=== PATIENT | female | born 1995 | race Caucasian/White ===

== ENCOUNTER 2020-01-30 12:45 | Emergency (ER) | payer OTHER ==
[~2020-01-30] VITALS: Ht 175.3 cm; Wt 55.3 kg
[2020-01-30] MEDS ORDERED: SERT-138 PO (13:22)
[2020-01-30] MEDS ORDERED: GABA-843 PO (13:22)
[2020-01-30 13:54] LABS: HEMATOCRIT 39.8 % (36.0-47.0); HEMOGLOBIN 13.5 g/dl (12.0-15.5); MEAN CORPUSCULAR HEMOGLOBIN 30.3 pg (27.0-33.0); MEAN CORPUSCULAR HGB CONC 33.9 g/dl (32.0-36.5); MEAN CORPUSCULAR VOLUME 89.4 fl (80.0-96.0); PLATELET COUNT, AUTOMATED 174 10^3/uL (150-450); RED BLOOD COUNT 4.45 10^6/uL (4.00-5.40); WHITE BLOOD COUNT 5.7 10^3/uL (4.0-10.0)
[2020-01-30] MEDS ORDERED: MACR100C43 PO (15:39)
[2020-01-30 16:00] VITALS: BP 108/60
== END 2020-01-30 16:02 | disposition home or self-care (01) ==
LOC: M ED 12:45
DX: N39.0 Urinary tract infection, site not specified (principal); M79.10 Myalgia, unspecified site; J34.89 Other specified disorders of nose and nasal sinuses; F41.9 Anxiety disorder, unspecified; F33.9 Major depressive disorder, recurrent, unspecified; Z79.899 Other long term (current) drug therapy; Z88.0 Allergy status to penicillin; Z87.440 Personal history of urinary (tract) infections; Z98.890 Other specified postprocedural states

== ENCOUNTER 2020-09-11 12:00 | Emergency (ER) | payer OTHER ==
[~2020-09-11] VITALS: Ht 175.3 cm; Wt 63.7 kg
[~2020-09-11 12:00] MED LIST: GABA-282 PO; MACR100C43 PO; SERT-138 PO
--- OUTSIDE RECORDS SUMMARY | 2020-09-11 12:07 | CCD ---
Author Author [facility] Organization [facility] Address Unknown Phone Unavailable Care Team Providers Care Band Leader Name Role Phone Isrrael ROBERT MD Unavailable Unavailable VENERUS, Isrrael JIMÉNEZ MD Unavailable Unavailable VENERUS, Isrrael JIMÉNEZ MD Unavailable Unavailable VENERUS, Isrrael JIMÉNEZ MD Unavailable Unavailable VENERUS, Isrrael JIMÉNEZ MD Unavailable Unavailable VENERUS, Isrrael JIMÉNEZ MD Unavailable Unavailable VENERUS, Isrrael JIMÉNEZ MD Unavailable Unavailable VENERUS, Isrrael JIMÉNEZ MD Unavailable Unavailable VENERUS, Isrrael JIMÉNEZ MD Unavailable Unavailable LETTIERE, Qian VARGAS PA Unavailable Unavailable LETTIERE, A ALICIA PA Unavailable Unavailable LETTIERE, A ALICIA PA Unavailable Unavailable LETTIERE, A ALICIA PA Unavailable Unavailable LETTIERE, Qian VARGAS PA Unavailable Unavailable LETTIERE, A ALICIA PA Unavailable Unavailable LETTIERE, A ALICIA PA Unavailable Unavailable LETTIERE, A ALICIA PA Unavailable Unavailable LETTIERE, A ALICIA PA Unavailable Unavailable LETTIERE, A ALICIA PA Unavailable Unavailable LETTIERE, A ALICIA PA Unavailable Unavailable LETTIERE, A ALICIA PA Unavailable Unavailable LETTIERE, A ALICIA PA Unavailable Unavailable LETTIERE, A ALICIA PA Unavailable Unavailable LETTIERE, A ALICIA PA Unavailable Unavailable LETTIERE, A ALICIA PA Unavailable Unavailable LETTIERE, A ALICIA PA Unavailable Unavailable LETTIERE, A ALICIA PA Unavailable Unavailable LETTIERE, A ALICIA PA Unavailable Unavailable LETTIERE, A ALICIA PA Unavailable Unavailable LETTIERE, A ALICIA PA Unavailable Unavailable LETTIERE, A ALICIA PA Unavailable Unavailable LETTIERE, A ALICIA PA Unavailable Unavailable LETTIERE, A ALICIA PA Unavailable Unavailable LETTIERE, A ALICIA PA Unavailable Unavailable LETTIERE, A ALICIA PA Unavailable Unavailable LETTIERE, A ALICIA PA Unavailable Unavailable LETTIERE, A ALICIA PA Unavailable Unavailable LETTIERE, A ALICIA PA Unavailable Unavailable Re-disclosure Warning The records that you are about to access may contain information from federally-assisted alcohol or drug abuse programs. If such information is present, then the following federally mandated warning applies: This information has been disclosed to you from records protected by federal confidentiality rules (42 CFR part 2). The federal rules prohibit you from making any further disclosure of this information unless further disclosure is expressly permitted by the written consent of the person to whom it pertains or as otherwise permitted by 42 CFR part 2. A general authorization for the release of medical or other information is NOT sufficient for this purpose. The Federal rules restrict any use of the information to criminally investigate or prosecute any alcohol or drug abuse patient.The records that you are about to access may contain highly sensitive health information, the redisclosure of which is protected by Article 27-F of the [facility] Public Health law. If you continue you may have access to information: Regarding HIV / AIDS; Provided by facilities licensed or operated by the [facility] Office of Mental Health; or Provided by the [facility] Office for People With Developmental Disabilities. If such information is present, then the following [facility] mandated warning applies: This information has been disclosed to you from confidential records which are protected by state law. State law prohibits you from making any further disclosure of this information without the specific written consent of the person to whom it pertains, or as otherwise permitted by law. Any unauthorized further disclosure in violation of state law may result in a fine or fdc sentence or both. A general authorization for the release of medical or other information is NOT sufficient authorization for further disc losure. Allergies and Adverse Reactions Type Description Substance Reaction Status Data Source(s ) Amoxicillin Amoxicillin Amoxicillin 80 MG/ML Oral Suspension hives Active eCW1 ([facility]) Encounters Encounter Providers Location Date Indications Data Source(s ) Emergency Attender: RAMONE ROBERT MD 05/10 03:23:00 PM EDT - 05/10/2020 04:53:00 PM EDT [facility] Patient discharged. [facility] [address] [address] 08/10/2019 12:00:00 AM EST eCW1 (Formerly [facility]) [facility] [address] [address] 08/07/2019 12:00:00 AM EST eCW1 (Formerly [facility]) Outpatient Attender: ALICIA hills 07/16/2019 02:50:00 PM EST MEDENT ([facility]) Medications Medication Brand Name Start Date Product Form Dose Route Admi nistrative Instructions Pharmacy Instructions Status Indications Reaction Description Data Source(s) Sudafed 30 MG Sudafed 30 MG 08/10/2019 12:00:00 AM EST active 1 tablet as needed eCW1 ([facility]) Flonase 50 MCG/ACT Flonase 50 MCG/ACT 08/10/2019 12:00:00 AM EST active 1 spray in each nostril eCW1 ([facility]) Neti Pot Sinus Wash 2300-700 MG Neti Pot Sinus Wash 2300-700 MG 08/10/2019 12:00:00 AM EST active as direc guzman eCW1 ([facility]) doxycycline hyclate 100 MG Oral Capsule Doxycycline Hy clate 100 MG Doxycycline Hyclate 100 MG 08/10/2019 12:00:00 AM EST active 1 capsule eCW1 ([facility]) 12 HR dextromethorphan polistirex 6 MG/M L Extended Release Suspension [Delsym] Delsym 30 MG/5ML Delsym 30 MG/5ML 08/10/2019 12:00:00 AM EST active 10 ml as needed eCW1 ([facility]) 12 HR Pseudoephedrine Hydrochloride 120 MG Extended Release Oral Tablet [Sudafed] Sudafed 12 Hour 120 MG Sudafed 12 Hour 120 MG 08/07/2019 12:00:00 A M EST active 1 tablet as neede d eCW1 ([facility]) 12 HR Pseudoephedrine Hydrochloride 120 MG Extended Release Oral Tablet [Sudafed] Sudafed 12 Hour 120 MG Sudafed 12 Hour 120 MG 08/07/2019 12:00:00 A M EST active 1 tablet as neede d eCW1 ([facility]) Doxycycline Monohydrate 100 MG Oral Tablet Doxycycline Monoh ydrate 07/16/2019 12:00:00 AM EST ORAL active M EDENT ([facility], [facility]) Insurance Providers Payer name Policy type / Coverage type Policy ID Covered republican ID Covered republican's relationship to yoo Policy Yoo Plan Information [facility] [id number] [facility] HUMAN - O/P [id number] 01 [id number] [facility] ACTIVE DUTY [id number] SP [id number] Problems, Conditions, and Diagnoses Code Display Name Description Problem Type Effective Dates Data Source(s) [id number] [address] in unspeci fied non-institutional (private) residence as the place of occurrence of the external cause Unspecified place in unspecified non-institutional (private) residence as the place of occurrence of the external cause Diagnosis 05/10/2020 03:23:00 PM EDT [facility] [id number] Overexertion from strenuous movement or load, initial encounter Overexertion from strenuous movement or load, initial encounter Diagnosis 05/10/2020 03:23:00 PM EDT [facility] [id number] Strain of muscle(s) and tend on(s) of the rotator cuff of left shoulder, initial encounter Strain of muscle(s) and tendon(s) of the rotator cuff of left shoulder, initial encounter Diagnosis 05/10/2020 03:23:00 PM EDT [facility] [id number] Unspecified injury of left shoulder and upper arm, initial encounter Unspecified injury of left shoulder and upper arm, initial encounter Diagnosis 05/10/2020 03:23:00 PM EDT [facility] Surgeries/Procedures Procedure Description Date Indications Data Source(s) Influenza A+B 08/07/2019 12:00:00 AM EST eCW1 ([facility]) Results ID Date Data Source [id number] 05/11/2020 05:07:00 PM EDT [facility] [address] [place] [address] PHONE: [phone] FAX: [phone] Name .................. : CHRIS Rosario Acct Number.................. : [id number] ROOM. ................. : TR-07 MR Number ................... : [id number] Stay type ............. : E/R Discharge Date......... ... : 05/10/20 Admit Date ......... : 05/10/20 Admit Phys .................... : YESICA RODGERS Date of ....... : 1995 Family Phys ................... : UNKNOWN Phone .................. : [phone] Age ................................ : 24 Film# .................. .:[id number] Sex ................................. : F Unsigned transcriptions are preliminary reports and do not represent a medical or legal document SHOULDER COMP-2 OR MORE [facility] L [id number] COMPLETE:05/10/20 16:13 INES 28870 Reason(s): Pain LEFT SHOULDER X- RAY: INDICATION: Pain. FINDINGS: There is normal alignment and position of the bones of the left shoulder. No evidence for acute bony injury is identified. The soft tissues also appear normal. IMPRESSION: Negative left shoulder. Electronically Reviewed and Signed By Kike Best MD , 05/11/20 17:07, TATE Transcribe Initials: Griselda FELDMAN scribe Date: 05/10/20 18:34, Dictation Date: Copy for: EMERGENCY DEPT via modem Copy for: 710 MED REC DISCHARGED Page 1 of 1 Name Value Range Interpretation Code Description Data Celena rce(s) Supporting Document(s) ID Date Data Source [id number] 05/10/2020 03:23:00 PM EDT [facility] 1 OrderSheet [facility] Emergency Department [address] [place] [address] Phone #: ext- [phone] 05/10/2020 15:16 Patient: ARMAND PEREZ Sex: F : 1995 Age: 24yWEIGHT:58.9 kg (S) HEIGHT:69 inches (S) BMI:19.2ALLERGIES: Amoxicillin, PenicillinsCHIEF COMPLAINT: Lt, shoulderDIAGNOSIS: Strain of muscle of upper limbLAB ORDERSOrder Description Priority Entered Acknowledged InitialedDIAGNOSTIC STUDY ORDERSOrder Description Priority Entered Acknowledged InitialedShoulder Complete STAT 15:34 05/10/2020 15:47 Michelle Adams (Oxygen?(No)) Ramone Temple R.N. Physician; Reason for Study: Pain, Trauma/InjuryMEDICATION/IV/DRIP/FLUID ORDERSOrder Descr iption Priority Entered Acknowledged InitialedToradol IM 60 mg 16:05 05/10/2020 16:18 Nagi(NOW) Ramone Lantigua RN Physician;GENERAL ORDERSOrder Description Priority Entered Acknowledged InitialedSling - arm (L arm) 16:40 05/10/2020 16:48 Ramone Adams R.N. Physician;[Electronically signed by Windy Adams R.N. (16:53 05/10/2020)][Electronically signed by Ramone Robert Physician (17:35 05/10/2020)][Electronically locked by Windy Adams R.N. (16:53 05/10/2020)] Name Value Range Interpretation Code Description Data Celena rce(s) Supporting Document(s) ID Date Data Source [id number] 05/10/2020 03:23:00 PM EDT [facility] 1 Medication Reconciliation Report [facility] Emergency Department [address] [place] [address] Phone #: ext- [phone] 05/10/2020 15:16 Patient: ARMAND PEREZ Sex: F : 1995 Age: 24yWeight: 58.9 kgHeight/Length: 69 in.BMI: 19.2ALLERGIES: Amoxicillin, PenicillinsThe patient's Home Medications are listed below:THE FOLLOWING MEDICATIONS NEED TO BE RECONCILED: Amitriptyline HCl Oral 50 mg, daily Gabapentin Oral 300 mg, dailyThe source(s) of the original Home Medication information:patientThe following Medications were given to the patient in the Emergency Department:Toradol [IM] IM 60 mg, administered: 05/10/2020 4:15:00 PMThe following Medications were prescribed to the patient:ibuprofen 800 mg tablet Take 1 tablet every eight hours as needed for 10 days -- for pain. Dispense 30tablet. Refills: 0. Substitution permitted.Pharmacy - [facility] [id number] ; [place] [address]. .cyclobenzaprine 5 mg tablet Take 1 tablet every eight hours as needed for 5 days -- for muscle spasm /strain. Dispense 15 tablet. Refills: 0. Substitution permitted.Pharmacy - [facility] [id number] ; [place] [address]. . -- Ramone Robert, Physician Name Value Range Interpretation Code Description Data Celena rce(s) Supporting Document(s) ID Date Data Source [id number] 05/10/2020 03:23:00 PM EDT [facility] 1 Medication Administration Record [facility] Emergency Department [address] [place] [address] Phone #: ext- [phone] 05/10/2020 15:16 Patient: ARMAND PEREZ Sex: F : 1995 Age: 24yWeight: 58.9 kgHeight/Length: 69 inBMI: 19.2ALLERGIES: Amoxicillin, Penicillins Date/Time Medication Administered Medication OrderedGiven TORADOL [IM] (KETOROLAC Toradol IM 60 mg (NOW)16:15 05/10/2020 TROMETHAMINE)Nagi Lantigua RN Dose: 60 mg IM Name Value Range Interpretation Code Description Data Celena rce(s) Supporting Document(s) ID Date Data Source [id number] 05/10/2020 03:23:00 PM EDT [facility] 1 General Instructions [facility] Emergency Department [address] [place] [address] Phone #: ext- [phone] 05/10/2020 15:16 Patient: ARMAND PEREZ Sex: F : 1995 Age: 24yMuscle strain of the left rotator cuff at the shoulder.INSTRUCTIONSWear sling as needed.(Consider MRI of L shoulder if symptoms persist.).Prescription Medications:ibuprofen 800 mg tablet Take 1 tablet every eight hours as needed for 10 days -- for pain. Dispense 30tablet. Refills: 0. Substitution permitted.Pharmacy - [facility] [id number] ; [place] [address]. .cyclobenzaprine 5 mg tablet Take 1 tablet every eight hours as needed for 5 days -- for muscle spasm /strain. Dispense 15 tablet. Refills: 0. Substitution permitted.Pharmacy - [facility] [id number] ; [place] [address]. .Follow-up:Follow up with an orthopedic surgeon in seven days if not better. Call for an appointment. Reason forreferral: evaluation, treatment and L shoulder strain. Follow up with your doctor if not better. Call for anappointment. Reason for referral: evaluation, treatment and L shoulder / rotator cuff strain.Understanding of the discharge instructions verbalized by patient. ADDITIONAL INFORMATIONMuscle Strain in the ExtremitiesA muscle strain is a stretching and tearing of muscle fibers. This causes pain, especially when youmove that muscle. There may also be some swelling and bruising.Home care Keep the hurt area raised above heart level to reduce pain and swelling. This is especially important during the first 48 hours. 2 General Instructions [facility] Emergency Department [address] [place] [address] Phone #: ext- [phone] 05/10/2020 15:16 Patient: ARMAND PEREZ Sex: F : 1995 Age: 24y Apply an ice pack over the injured area for 15 to 20 minutes every 3 to 6 hours. You should do this for the first 24 to 48 hours. You can make an ice pack by filling a plastic bag that seals at the top with ice cubes and then wrapping it with a thin towel. Be careful not to injure your skin with the ice treatments. Ice should never be applied directly to skin. Continue the use of ice packs for relief of pain and swelling as needed. After 48 hours, apply heat (warm shower or warm bath) for 15 to 20 minutes several times a day, or alternate ice and heat. You may use qptx-hqg-gtagrhs pain medicine to control pain, unless another medicine was prescribed. If you have chronic liver or kidney disease or ever had a stomach ulcer or gastrointestinal bleeding, talk with your healthcare provider before using these medicines. For leg strains: If crutches have been recommended, don't put full weight on the hurt leg until you can do so without pain. You can return to sports when you are able to hop and run on the injured leg without pain.Follow-up careFollow up with your healthcare provider, or as advised.When to seek medical adviceCall your healthcare provider right away if any of these occur: The toes of the injured leg become swollen, cold, blue, numb, or tingly Pain or swelling increases [id number] [employer]. [address] [place], [place] [address]. All rights reserved. This information is not intended as asubstitute for professional medical care. Always follow your healthcare professional's instructions.SlingA sling is designed to support your arm in a position of rest. It is used for injuries of the hand, forearm, 3 General Instructions [facility] Emergency Department [address] [place] [address] Phone #: ext- [phone] 05/10/2020 15:16 Patient: ARMAND PEREZ Sex: F : 1995 Age: 24yupper arm, and shoulder.A shoulder that is immobilized too long can become stiff and lose range of motion. Your elbow canalso get stiff. Follow up with your healthcare provider as advised and don't use the sling longer thandirected.Home use: Leave the sling in place as long as directed by your healthcare provider. Unless told otherwise, you may remove it when bathing, dressing, and when you go to sleep. If approved by your healthcare provider, you can do gentle "pendulum exercises." To do these: o Remove your sling. o Stand or sit with your arm vertical and close to your side. o Relax your shoulder muscles and gently swing the arm forward and back, side to side, and in small circles. o Do this for about 5 minutes once or twice a day.There should be only minimal pain with this exercise. If you have more than minimal discomfort, stopthe exercise and call your healthcare provider. The sling is adjustable. If it becomes loose, adjust it so that your forearm is horizontal (level with the ground). Your hand should be level with the elbow. 6474-8999 [employer]. [address] [place] [address]. All rights reserved. This information is not intended as asubstitute for professional medical care. Always follow your healthcare professional's instructions. You have been given the following additional information: Muscle Strain, Extremity Sling(Electronically signed by Ramone Robert, Physician 05/10/2020 17:35) Name Value Range Interpretation Code Description Data Celena rce(s) Supporting Document(s) ID Date Data Source [id number] 05/10/2020 03:23:00 PM EDT [facility] 1 Clinical Report - Nurses [facility] Emergency Department [address] [place] [address] Phone #: ext- [phone] 05/10/2020 15:16 Patient: ARMAND PEREZ Sex: F : 1995 Age: 24yTRIAGEArrived by private vehicle. Historian: patient. Accompanied by spouse.Triage time: late entry - 15:17 05/10/2020. Acuity: LEVEL 4.Chief Complaint: (Left shoulder pain).Alert. No acute distress.Location of injuries: left shoulder. Occurred 15:19 05/07/2020. ( Pt states on night she wastrying to push herself off the couch and suddenly felt as if something shifted in her left shoulder. After thisshe would get pain from the shoulder to the elbow when attempting to pick anything up. Pt feels she mayhave moved weird in her sleep last night and now it feels more irritated, and hurts even withoutmovement/use.).Treatment CAGE FIGHTER:None.SEPSIS SCREEN: SIRS Screen negative. Sepsis Screen negative. No suspected or confirmed signs ofinfection present. (15:23 05/10/2020). --15:23 05/10/20 Hattie Tariq R.N.15:18 05/10/20. BP: 121/84. MAP: 96. HR: 88. RR: 16. O2 saturation: 100% on room air. Temp: 98.5 F(oral). Pain level now: 12/24. --15:23 05/10/20 Hattie Tariq R.N.Weight: 58.9 kg stated. Height/Length: 69 inches Per Patient. BMI: 19.2. --15:17 05/10/20 Hattie Tariq R.N.MedicationsAmitriptyline HCl Oral 50 mg, daily. --15:20 05/10/20 Hattie Tariq R.N. Gabapentin Oral 300 mg, daily. --15:20 05/10/20 Hattie Tariq R.N.AllergiesPenicillins. --15:21 05/10/20 Hattie Tariq R.N.Amoxicillin. --15:21 05/10/20 Hattie Tariq R.N.PROBLEMS:Migraine Headache.Depression.Anxiety Reaction. --15:21 05/10/20 Hattie Tariq R.N.Medication/allergy information source: the patient. --15:23 05/10/20 Hattie Tariq R.N.ADDITIONAL SURGERIES: 2 Clinical Report - Nurses [facility] Emergency Department [address] [place] [address] Phone #: ext- [phone] 05/10/2020 15:16 Patient: ARMAND PEREZ Sex: F : 1995 Age: 24y HODAN surgery . --15:21 05/10/20 Hattie Tariq R.N. Dental Surgery. --15:21 05/10/20 Hattie Tariq R.N. History PAST MEDICAL HX: Tetanus status: up-to-date. Immunizations: up-to-date. Last normal menstrual period- 04/16/20. SOCIAL HX: Never smoker. Occasional alcohol use. No drug use. The patient was offered HIV testing but declined. Patient education was provided. The patient was offered hepatitis C testing but declined. Patient education was provided. ( COVID screen negative). The patient has not traveled outside the [place] Infectious disease exposure: No infectious disease exposure. Patient is not a known carrier of tuberculosis, hepatitis, HIV, MRSA or VRE. Patient is not a known carrier of CRE. SELF HARM ASSESSMENT: Self harm assessment was performed. The patient answered "no" to the question(s) "Do you have thoughts of harming or killing yourself?" and "Do you have a plan for harming or killing yourself?". ABUSE ASSESSMENT: Abuse assessment. The patient had positive responses to the question(s) "Do you feel safe in your home?". Abuse denied. No suspicion of abuse. No report of abuse. NUTRITIONAL RISK ASSESSMENT: The nutritional risk assessment revealed no deficiencies. FUNCTIONAL ASSESSMENT: Functional assessment: no impairments noted. LEARNING NEEDS ASSESSMENT: The learning needs assessment revealed no barriers. FALL RISK ASSESSMENT: Fall risk assessment completed. No risk factors identified. SKIN INTEGRITY ASSESSMENT: Skin integrity risk assessment completed. No skin integrity risk identified. --15:05/10/20 Hattie Tariq R.N. Interventions Identification band on patient. --15:05/10/20 Hattie Tariq R.N.PHYSICAL ASSESSMENTGENERAL / NEURO / PSYCH: Alert. Oriented X 4. Appears in pain.HEENT: Pupils equal, round and reactive to light. Head non-tender.RESPIRATORY: Respirations not labored. Chest nontender. Breath sounds within normal limits.CVS: Normal heart rate and rhythm. Pulses within normal limits. Capillary refill less than 2 seconds.GI / : Abdomen soft and nontender.EXTREMITIES: Left shoulder: tenderness located in the posterior aspect of the shoulder (PAin thatradiates from shoulder to elbow).SKIN: Skin intact. Skin is warm and dry. --15:27 05/10/20 Windy Adams R.N. 3 Clinical Report - Nurses [facility] Emergency Department [address] [place] [address] Phone #: ext- [phone] 05/10/2020 15:16 Patient: ARMAND PEREZ Sex: F : 1995 Age: 24yNURSING PROGRESS NOTES16:15 05/10/2020 Toradol (Ketorolac Tromethamine) IM 60 mg given. Given in the left gluteus corry.Allergies verified and confirmed 5 rights. Information reviewed with patient including reason for taking thismedication. Verbalizes understanding. --16:18 05/10/20 Nagi Lantigua RN.DISPOSITION / DISCHARGE Condition at departure: improved. No learning barriers present. Discharge instructions provided and reviewed with the patient. Reviewed medication(s). Prescription(s) sent electronically to pharmacy. Reviewed referral to an orthopedic surgeon. Written instructions provided in Greek. ( Spling applied to L shoulder). The patient was discharged by the physician. She was discharged home and accompanied by spouse. She left ambulatory and via private vehicle. Patient driving. --16:53 05/10/20 Windy Adams R.N. 16:52 05/10/20. BP: 116/78. MAP: 90. HR: 85. RR: 20. O2 saturation: 100%. Temp: 98.3 F. Pain level now: 08/26. --16:53 05/10/20 Windy Adams R.N.Locked/Released at 05/10/2020 16:53 by Windy Adams R.N. Name Value Range Interpretation Code Description Data Celena rce(s) Supporting Document(s) ID Date Data Source [id number] 05/10/2020 03:23:00 PM EDT [facility] 1 Clinical Report - Physicians/Mid Levels [facility] Emergency Department [address] [place] [address] Phone #: ext- [phone] 05/10/2020 15:16 Patient: ARMAND PEREZ Sex: F : 1995 Age: 24y Time Seen: 15:17 05/10/2020. Arrived- By private vehicle. Historian- patient. Disposition decision: 16:33 05/10/2020.HISTORY OF PRESENT ILLNESS Chief Complaint: Injury to left shoulder. The injury happened several days ago. Occurred at home. ( Hurt L shoulder pushing herself up from seated position). Patient is experiencing moderate pain. No injury to the head or neck or other injury. ( Hx of rotator cuff injury to R shoulder in past. Pt. is on Gabapentin chronically for pain.).REVIEW OF SYSTEMSNo swelling, tingling, numbness, weakness or suspected foreign body. No skin laceration.PAST HISTORYPast history not negative. See nurses notes. MigrainesDepressionAnxiety. The patient's dominant hand is the right. Tetanus immunization status is up-to-date. Surgeries: Dental surgery. (HODAN surgery (Surgery for pectus excavatum)).SOCIAL HISTORYNever smoker. Occasional alcohol use. No drug use. No recent travel.ADDITIONAL NOTESThe nursing notes have been reviewed with agreement regarding the chief complaint, HPI, ROS, PMH andpatient medications and allergies.PHYSICAL EXAMVital Signs: 05/10/2020 15:18 BP: 121/84. MAP: 96. HR: 88. RR: 16. O2 saturation: 100% on room air.Temp: 98.5 F. Pain level now: 6/10. Have been reviewed and appear to be correct. Blood pressurenormal. Heart rate normal. Respiratory rate normal. Temperature normal. Oxygen saturation normal.Appearance: Alert. Oriented X3. Anxious. Appears to be in pain. In distress. Patient in mild distress.No backboard or C-collar.Head: Head atraumatic.Back: Abnormal inspection. Back tenderness present. Abnormal ROM.Skin: Skin intact. Skin warm and dry. Normal skin color. Normal skin turgor.Extremities: Normal external inspection. Extremity tenderness. Mild soft- tissue tenderness present overthe left medial and posterior shoulder. Left shoulder. Shoulder otherwise negative. No decreased rangeof motion at the shoulders. (Pt. has good ROM of L shoulder.). Extremities otherwise negative.Neuro, Vascular and Tendons: Sensation intact. Motor intact. Vascular status intact. Tendon functionintact. 2 Clinical Report - Physicians/Mid Levels [facility] Emergency Department [address] [place] [address] Phone #: ext- [phone] 05/10/2020 15:16 Patient: ARMAND PEREZ Sex: F : 1995 Age: 24y Neuro: Oriented X 3. No motor deficit. No sensory deficit.LABS, X-RAYS, AND EKGX-Rays: Left shoulder negative.PROGRESS AND PROCEDURESCourse of Care: 16:08 May 10 2020. Patient is stable. 16:08 May 10 2020. X-ray of L shoulder appears unremarkable, but, as I told her, MRI is the definitive test to see soft tissues (muscles, tendons and cartilage) if symptoms persist. Await radiology read on shoulder. 16:32 May 10 2020. No evidence of any bony injury to L shoulder as per radiology. Will discharge home with dx of L shoulder strain. Disposition: Discharged home in good and improved condition (16:33 May 10 2020). Condition: good.CLINICAL IMPRESSION Muscle strain of the left rotator cuff at the shoulder.INSTRUCTIONS Wear sling as needed. (Consider MRI of L shoulder if symptoms persist.). Prescription Medications: ibuprofen 800 mg tablet Take 1 tablet every eight hours as needed for 10 days -- for pain. Dispense 30 tablet. Refills: 0. Substitution permitted. Pharmacy - [phone] [phone] ; [place] [address]. Phone: . cyclobenzaprine 5 mg tablet Take 1 tablet every eight hours as needed for 5 days -- for muscle spasm / strain. Dispense 15 tablet. Refills: 0. Substitution permitted. Pharmacy - [phone] ; [place] [id number]. . Follow-up: Follow up with an orthopedic surgeon in seven days if not better. Call for an appointment. Reason for referral: evaluation, treatment and L shoulder strain. Follow up with your doctor if not better. Call for an appointment. Reason for referral: evaluation, treatment and L shoulder / rotator cuff strain. 3 Clinical Report - Physicians/Mid [facility] Emergency Department [address] [place] [address] Phone #: ext- [phone] 05/10/2020 15:16 Patient: ARMAND PEREZ Sex: F : 1995 Age: 24y Understanding of the discharge instructions verbalized by patient.(Electronically signed by Ramone Robert Physician 05/10/2020 17:35) Name Value Range Interpretation Code Description Data Celena rce(s) Supporting Document(s) Procedure Vital Signs ID Date Data Source UNK Name Value Range Interpretation Code Description Data Source(s) Diastolic blood pressure 75 mm[Hg] 75 mm[Hg] eCW1 ([facility]) Systolic blood pressure 108 mm[Hg] 108 mm[Hg] e CW1 ([facility]) Body temperature 98.2 [degF] 98.2 [degF] eCW1 ( [facility]) Respiratory rate 16 /min 16 /min eCW1 ([facility]) Heart rate 94 /min 94 /min eCW1 ([facility]) Body mass index (BMI) [Ratio] 17.42 kg/m2 17.42 kg/m2 eCW1 ([facility]) Body height 69 [in_us] 69 [in_us] eCW1 ([facility]) Body weight Measured 118 [lb_av] 118 [lb_av] eC W1 ([facility]) Diastolic blood pressure 84 mm[Hg] 84 mm[Hg] eCW1 ([facility]) Systolic blood pressure 119 mm[Hg] 119 mm[Hg] e CW1 ([facility]) Body temperature [degF] eCW1 ([facility]) Respiratory rate 16 /min 16 /min eCW1 ([facility]) Heart rate 87 /min 87 /min eCW1 ([facility]) Body mass index (BMI) [Ratio] 17.42 kg/m2 17.42 kg/m2 eCW1 ([facility]) Body height 69 [in_us] 69 [in_us] eCW1 ([facility]) Body weight Measured 118 [lb_av] 118 [lb_av] eC W1 ([facility]) Body mass index (BMI) [Ratio] 17.4 kg/m2 17.4 k g/m2 MEDENT ([facility], [facility]) Body height 69 [in_i] 69 [in_i] MEDENT ([facility], [facility]) 5'9" Body weight 118.00 [lb_av] 118.00 [lb_av] MEDEN T ([facility], [facility]) Body temperature 98.5 [degF] 98.5 [degF] MEDENT ([facility], [facility]) Oxygen saturation in Arterial blood by Pulse oximetry 97 % 97 % MEDENT ([facility], [facility]) Respiratory rate 17 /min 17 /min MEDENT ( [facility], [facility]) Heart rate 73 /min 73 /min MEDENT ([facility], [facility]) Diastolic blood pressure 68 mm[Hg] 68 mm[Hg] MEDENT ([facility], [facility]) Systolic blood pressure 102 mm[Hg] 102 mm[Hg] M EDENT ([facility], [facility]) Patient Treatment Plan of Care Planned Activity Planned Date Details Description Data Source (s) Neti Pot Sinus Wash 2300-700 MG 08/10/2019 12:00:00 AM EST eCW1 ([facility]) Sudafed 30 MG 08/10/2019 12:00:00 AM EST eCW1 ([facility]) doxycycline hyclate 100 MG Oral Capsule 08/10/2019 12:00:00 AM EST eCW1 ([facility]) Flonase 50 MCG/ACT 08/10/2019 12:00:00 AM EST eCW1 ([facility]) 12 HR dextromethorphan polistirex 6 MG/ML Extended Rel ease Suspension [Delsym] 08/10/2019 12:00:00 AM EST eCW1 ([facility]) 12 HR Pseudoephedrine Hydrochloride 120 MG Extended Release Oral Tablet [Sudafed] 08/07/2019 12:00:00 AM EST eCW1 ([facility])
[2020-09-11] MEDS ORDERED: AMIT50TA PO (12:08)
[2020-09-11] MEDS ORDERED: NS 1,000 ML IV ONE (12:35)
[2020-09-11 13:38] LABS: BASO % 0.5 % (0.0-1.0); EOS # 0.1 10^3/uL (0.0-0.5); HEMATOCRIT 37.9 % (36.0-47.0); HEMOGLOBIN 12.5 g/dl (12.0-15.5); LYMPH # 1.3 10^3/uL (1.5-5.0); LYMPH % 20.7 % (24.0-44.0); MEAN CORPUSCULAR HEMOGLOBIN 29.6 pg (27.0-33.0); MEAN CORPUSCULAR VOLUME 89.8 fl (80.0-96.0); MONO # 0.3 10^3/uL (0.0-0.8); NEUTROPHILS # 4.4 10^3/uL (1.5-8.5); NEUTROPHILS % 72.6 % (36.0-66.0); PLATELET COUNT, AUTOMATED 182 10^3/uL (150-450); RED BLOOD COUNT 4.22 10^6/uL (4.00-5.40)
[2020-09-11 13:39] VITALS: O2SAT 100
[2020-09-11] MEDS ORDERED: DEXTROSE 50% 50 ML SYRINGE IV SCH (13:55)
[2020-09-11 14:16] LABS: ALBUMIN 4.5 GM/DL (3.2-5.2); ALT/SGPT 24 U/L (12-78); AMYLASE 50 U/L (25-115); BILIRUBIN,DIRECT < 0.1 MG/DL (0.0-0.2); BILIRUBIN,TOTAL 0.3 MG/DL (0.2-1.0); CK-MB VALUE MASS < 1.0 NG/ML (<3.6); CPK CREATINE PHOSPHOKINASE 109 U/L (26-192); FREE T4 0.84 NG/DL (0.76-1.46); LIPASE 111 U/L (73-393); MB/CK RELATIVE INDEX 0.92 (< OR =4); THYROID STIMULATING HORMONE 0.761 uIU/ML (0.358-3.740); TOTAL PROTEIN 8.1 GM/DL (6.4-8.2); TROPONIN I < 0.02 NG/ML (< 0.10)
--- NOTE | 2020-09-11 14:38 | REP ---
INDICATION: lower abd pain. COMPARISON: None. TECHNIQUE: KUB: Two views. FINDINGS: Bowel gas pattern is unremarkable. An IUD is seen centrally in the pelvis. There are calcifications in the right upper quadrant of the abdomen which may be biliary or urinary tract. Flank stripes are intact. Clothing artifact is visible in the pelvis. IMPRESSION: Right upper quadrant calcifications. IUD in place. Normal bowel gas pattern. <Electronically signed by Asif Barraza > 09/11/20 [id number]
[2020-09-11] MEDS ORDERED: ISOVUE-370 76% 100ML VIAL As Ordered ONE (15:21)
--- NOTE | 2020-09-11 16:08 | REP ---
INDICATION: diffuse abd pain, calcifications RUQ r/o gallstone/kidneysto. COMPARISON: Abdomen series 09/11/2020 TECHNIQUE: Noncontrast exam with coronal and sagittal reconstructions provided. FINDINGS: CT abdomen: Lung bases are clear. Heart is not enlarged no pericardial thickening or effusion. I see no definite hiatal hernia. Heart size not enlarged no pericardial thickening or effusion. I see no definite hiatal hernia some retained food in the stomach within the gastric fundus. Right lobe liver is borderline at 18 cm in the midclavicular line there is no discrete mass, intrahepatic biliary dilatation or peripelvic ascites. Gallbladder shows no calcified stone small bowel loops in the upper abdomen grossly unremarkable. Gallbladder contracted with evidence in the stomach of recent meal. No calcified gallstones seen small bowel loops grossly unremarkable the aorta is grossly intact. There is no periaortic or retroperitoneal pathologic sized lymphadenopathy. No mesenteric edema. Lung window review of all CT slices shows no perforation or free air in the abdomen pelvis. Abdominal portion of the colon shows stool and gas scattered without signs of colitis or diverticulitis. Kidneys show no 11.4 Mm stone or 2 adjacent stones in the upper pole on the right. Does not appear to have hydronephrosis or hydroureter left kidney without visible stone. Course of the ureters the bladder was unremarkable and without calcification. No periaortic or retroperitoneal lymphadenopathy. Aorta without aneurysm. Bone windows show the lumbar, thoracic spine and their posterior elements grossly unremarkable. The visualized lower ribs were intact. CT pelvis: Sacrum, SI joints, iliac bones, acetabula, ischia, and hips show no bony abnormalities. The central pelvis there is an IUD in appropriate position within the retroverted uterus. Bladder partially filled with the urine but no stone, distal ureteral dilatation or stone and no bladder wall thickening, mass or debris no ventral or inguinal hernia nor pathologic sized inguinal adenopathy. IMPRESSION: 1. Calcification right upper quadrant, 2 adjacent stones with conglomerate length of 11.4 mm overall. No bladder stone hydroureter or ureteral stone. These 2 stones appear nonobstructing. 2. There is no other significant finding in the abdomen or pelvis. <Electronically signed by Blu Yanez > 09/11/20 [id number]
[2020-09-11 16:30] VITALS: BP 130/76
--- NOTE | 2020-09-11 17:20 | ECGEPIP ---
[facility] - ED Test Date: 2020-09-11 Pat Name: ARMAND PEREZ Department: Room: - Gender: Female Stem Lead Former: : 1995 Requested By: MARIA C Navarro PA-C Order Number: [id number] Reading MD: Conrad Gutierrez Measurements Intervals [place] Rate: 94 P: 78 MN: 150 QRS: 76 QRSD: 98 T: 56 QT: 390 QTc: 487 Interpretive Statements Normal sinus rhythm Possible Left atrial enlargement Prolonged QT Baseline artifact Comparison tracing not on file Electronically Signed on 09-11-2020 17:20:19 EST by Conrad Gutierrez
== END 2020-09-11 16:40 | disposition home or self-care (01) ==
LOC: M ED 12:00
DX: E16.2 Hypoglycemia, unspecified (principal); N20.0 Calculus of kidney; I45.81 Long QT syndrome; F33.9 Major depressive disorder, recurrent, unspecified; F41.9 Anxiety disorder, unspecified; Z79.899 Other long term (current) drug therapy; Z97.5 Presence of (intrauterine) contraceptive device; Z88.0 Allergy status to penicillin
CPT/HCPCS: 74018; 74176; 80047; 80076; 81001; 82150; 82550; 82553; 83036; 83690; 84439; 84443; 84484; 84702; 85025; 87804; 93005; 96361; 96374; 99284; U0003